=== PATIENT | female | born 1965 | race Caucasian/White ===

== ENCOUNTER 2017-03-11 06:07 | Inpatient (IN) | payer OTHER ==
--- NOTE | 2017-03-05 10:24 | HP ---
HISTORY AND PHYSICAL: DATE OF OFFICE VISIT: 02/28/17 DATE OF SURGERY: 03/11/17 SURGEON: Chantelle Fried MD PROCEDURE: Left total hip arthroplasty. CHIEF COMPLAINT: Left hip pain. HISTORY OF PRESENT ILLNESS: Ms. Reese is a 51-year-old female with complaints of left hip pain. She has failed conservative management and has elected to proceed with a left total hip arthroplasty, which is scheduled for with Dr. Fried. PAST MEDICAL HISTORY: Diabetes, hyperlipidemia, depression, history of osteomyelitis. PAST SURGICAL HISTORY: , I and D of the left hip, and tonsillectomy. CURRENT MEDICATIONS: 1. Amitriptyline 50 mg q.h.s. 2. Paxil 3 mg once a day. 3. Levemir 100 units per mL. 4. Metformin 500 mg twice a day. 5. Ibuprofen 800 mg 3 times a day. 6. Tramadol as needed. ALLERGIES: PENICILLIN. FAMILY HISTORY: Unknown. She is adopted. SOCIAL HISTORY: She is a 51-year-old female. She lives with her . 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 She does not smoke, use drugs or alcohol. REVIEW OF SYSTEMS: A complete 14-point review of systems was reviewed with the patient. Positive for diabetes. Negative for history of DVT, PE, or anesthesia problems. PHYSICAL EXAMINATION GENERAL: She is well developed, well nourished, in no acute distress. VITAL SIGNS: She stands 5 feet 5 inches tall, weighs 150 pounds. Her blood pressure is 171/86. Her heart rate is 116. HEENT: Normocephalic, atraumatic. NECK: Supple. No palpable lymph nodes. PULMONARY: The lungs are clear to auscultation bilaterally. CARDIO: Regular rate and rhythm. Strong S1, S2. ABDOMEN: Soft, nontender, nondistended. NEUROLOGIC: She is alert and oriented x3. Cranial nerves II through XII are intact. MUSCULOSKELETAL: Left lower extremity, the skin is intact. There are no open wounds or abrasions. She walks with a slightly antalgic type gait favoring the left leg. The lower extremity muscle group strengths are intact at 5/5. She has 2+ dorsalis pedis pulses and intact sensation. ASSESSMENT AND PLAN: Ms. Reese is a 51-year-old female with complaints of left hip pain secondary to osteoarthritis. She has failed conservative management, has elected to proceed with a left total hip arthroplasty which is scheduled for 03/11/[address] Fried discussed the risks and benefits of the surgery at today's visit and all of her questions were answered. Percocet, Coumadin, and Colace were sent to her pharmacy for postoperative pain control and DVT prophylaxis. She will see Dr. Fried in about 2 weeks after the surgery. GRANT PRESSLEY [id number]/[facility] #: [id number] ALICIA
[~2017-03-11 06:07] MED LIST: Buffered Lidocaine 0.9% SYRIN* 5 ML/SYR SYRINGE INTRADERM ONE; Famotidine IV* 10 MG/ML 2 ML (20 mg) IV ONE; Scopolamine 1.5 mg* PATCH TRANSDERM ONE
[2017-03-11] MEDS ORDERED: Buffered Lidocaine 0.9% SYRIN* 5 ML/SYR SYRINGE ONE (06:17)
[2017-03-11] MEDS ORDERED: Scopolamine 1.5 mg* PATCH ONE (06:17)
[2017-03-11] MEDS ORDERED: Famotidine IV* 10 MG/ML 2 ML (20 mg) ONE (06:17)
[2017-03-11] MEDS ORDERED: Clindamycin 900 MG IVPREMIX(* 900 MG/50 ML SDV IV ONE (06:18)
[2017-03-11 06:22] LABS: Manual Entry Verification CAR0052; UR Preg Internal Control QC Line Present; UR Preg Kit Lot# 6090065
[2017-03-11] MEDS ORDERED: Bupivacaine 0.5% SDV PF* 30 ML VIAL ONE (07:19)
[2017-03-11] MEDS ORDERED: Midazolam* 1 MG/ML 5 ML VIAL (5 MG) ONE (07:19)
[2017-03-11] MEDS ORDERED: Morphine PF AMP (0.5MG/ML)* 5 MG/10 ML AMP ONE (07:20)
[2017-03-11] MEDS ORDERED: fentaNYL* 50 MCG/ML 2 ML VIAL (100 MCG VIAL) ONE (07:20)
[2017-03-11] MEDS ORDERED: Propofol* 10 MG/ML 20 ML BTL IV PUSH ONE (07:51)
[2017-03-11] MEDS ORDERED: Lidocaine 2% PF * 5 ML VIAL ONE (07:51)
[2017-03-11] MEDS ORDERED: Phenylephrine IV* 40 MCG/ML 10 ML SYRINGE ONE (08:06)
[2017-03-11] MEDS ORDERED: Phenylephrine INJ* 10 MG/ML 1 ML VIAL (10 MG) ONE (08:11)
[2017-03-11] MEDS ORDERED: Ondansetron INJ* 2 MG/ML VIAL ONE (08:39)
[2017-03-11] MEDS ORDERED: fentaNYL* 50 MCG/ML 2 ML VIAL (100 MCG VIAL) IV PRN (08:43)
[2017-03-11] MEDS ORDERED: Nalbuphine* 20 MG/ML 1 ML VIAL IV PRN ×2 (08:43→08:44)
[2017-03-11] MEDS ORDERED: Acetaminophen IV 1GM/100ML * 100 ML IVPB ONE (08:43)
[2017-03-11] MEDS ORDERED: oxyCODONE TAB* 5 MG TAB PO PRN ×3 (08:43→10:25)
[2017-03-11] MEDS ORDERED: PROCHLORPERAZINE INJ 5 MG/ML 2 ML VIAL IV PRN ×2 (08:43→08:44)
[2017-03-11] MEDS ORDERED: Naloxone* 0.4 MG/ML 1 ML VIAL IV PRN (08:44)
[2017-03-11] MEDS ORDERED: Ondansetron INJ* 2 MG/ML VIAL IV PRN ×2 (08:44→23:46)
[2017-03-11] MEDS ORDERED: EPHEDrine (Pressors)* 50 MG/ML VIAL ONE (08:48)
[2017-03-11] MEDS ORDERED: Midazolam* 1 MG/ML 2 ML VIAL (2 MG) ONE (09:27)
[2017-03-11] MEDS ORDERED: Bacitracin IV* 50,000 UNITS INJ ONE (09:30)
[2017-03-11] MEDS ORDERED: oxyCODONE/Acetamin 5/325 MG* TAB PO PRN ×2 (10:25)
[2017-03-11] MEDS ORDERED: Magnesium Hydroxide LIQ* 30 ML UDC PO PRN (10:25)
[2017-03-11] MEDS ORDERED: Polyethylene Glycol 3350* 17 GM PACKET PO PRN (10:25)
[2017-03-11] MEDS ORDERED: Bisacodyl SUPP* 10 MG SUPP PR PRN (10:25)
[2017-03-11] MEDS ORDERED: Nalbuphine* 20 MG/ML 1 ML VIAL ONE (10:50)
[2017-03-11] MEDS ORDERED: Acetaminophen IV 1GM/100ML * 100 ML ONE (11:11)
--- NOTE | 2017-03-11 11:17 | RAD ---
Indication: LEFT total hip replacement. Comparison: January 13, 2017 Technique: RIGHT lateral decubitus crosstable lateral view LEFT hip 0823 hours Report: Prosthetic acetabular component in place. Test fit/reamer femoral component in place. Gross normal anatomic alignment in the AP projection. No periprosthetic fracture evident. Overlying soft tissue edema and subcutaneous emphysema. IMPRESSION: Intraoperative control film.
--- NOTE | 2017-03-11 11:19 | RAD ---
Indication: Postop LEFT total hip replacement. Comparison: January 13, 2017 Technique: Low AP pelvis and AP and crosstable lateral views LEFT hip. Report: LEFT total hip prosthesis in place with anatomic alignment. No periprosthetic fracture evident. Overlying soft tissue edema and subcutaneous emphysema. Kellgren and Danny grade 3 osteoarthritis of the RIGHT hip noted. IMPRESSION: Unremarkable immediate postop appearance following LEFT total hip replacement.
[2017-03-11] MEDS ORDERED: PROCHLORPERAZINE INJ 5 MG/ML 2 ML VIAL ONE (11:47)
[2017-03-11] MEDS ORDERED: Dextrose 50% Syringe 50 ML* 25 GM/50 ML SYRINGE IV PUSH PRN (12:02)
[2017-03-11] MEDS ORDERED: diPHENhydraMINE IV* 50 MG/ML 1 ml VIAL (BENADRYL) IV PRN ×2 (14:26→23:45)
--- NOTE | 2017-03-11 15:22 | CONS ---
HOSPITAL MEDICINE CONSULTATION REPORT: DATE OF CONSULT: 03/11/17 ATTENDING PHYSICIAN: Dr. Chantelle Fried. CONSULTING PHYSICIAN: Dr. Denton Gagnon (dictation provided by Evie Becerra NP). REASON FOR CONSULT: Medical comanagement in a patient admitted for left total hip arthroplasty. HISTORY OF PRESENT ILLNESS: Ms. Reese is a 51-year-old female with a past medical history of diabetes which is insulin dependent, hypertension, and episode of MSSA sepsis with bacteremia and left hip osteomyelitis, who presents to the hospital today with plan for left total hip arthroplasty. Please see the dictated H and P from Dr. Fried for complete details. In brief, back in June of 2015, the patient was initially treated at [facility] for MSSA bacteremia. She was transitioned to our hospital when she continued to have altered mental status and was found ultimately to have left hip myositis and acute femoral hematogenous osteomyelitis. She remained in the hospital from 06/17/15 through 07/07/15, and was critically ill. She did undergo I and D with Dr. Churchill at that time. She subsequently underwent rehab at our facility and was discharged on 08/04/15. The patient's and the patient state that she has been doing well since she has been discharged home and her only real concern has been left hip pain. She presents today for left total hip arthroplasty. PAST MEDICAL HISTORY: 1. Type 2 diabetes, insulin dependent. 2. History of MSSA bacteremia with left hip myositis and femoral osteomyelitis , 2014. 3. Hyperlipidemia. 4. Depression. MEDICATIONS: 1. Amitriptyline 50 mg p.o. q.h.s. 2. Paxil 10 mg p.o. daily. 3. Levemir 9 units in the morning and 14 units at night. 4. Metformin 500 mg p.o. twice daily. 5. Ibuprofen as needed. 6. Tramadol as needed. ALLERGIES: To PENICILLIN. FAMILY HISTORY: The patient is adopted. SOCIAL HISTORY: No report of alcohol, tobacco, or drug use. She lives with her who is the healthcare proxy. REVIEW OF SYSTEMS: A 14-point review of systems was completed with Ms. Reese and all those not mentioned above were negative. PHYSICAL EXAM: Vital Signs: Temperature 96.6, heart rate 88, respiratory rate 16, O2 saturation 97% on 2 L nasal cannula, blood pressure 98/69. General: Ms. Reese was lying in bed. She is in no acute distress. She is calm and cooperative to my examination. Neuro: She is alert, she is oriented x3. She moves all extremities equally. There is no facial asymmetry or focal weakness. Extraocular movements are intact. Heart: S1, S2. No murmur, rub, or gallop, and regular. Lungs are clear to auscultation bilaterally with no accessory muscle use and good aeration. Abdomen: Soft and nontender with bowel sounds positive x4. Extremities: No cyanosis or edema. Skin is intact. LABORATORY DATA: Preoperatively on 02/28/17, WBC , hemoglobin 14.4, hematocrit 44, platelet count 200. Sodium 139, potassium 4.4, chloride 106, serum bicarbonate 24, BUN 24, creatinine 0.77, glucose 89. ASSESSMENT AND PLAN: Ms. Reese is a 51-year-old female with past medical history of diabetes, depression, and episode of methicillin-sensitive Staphylococcus aureus bacteremia with left hip osteomyelitis in 2014, who presents today at the hospital with plans for an elective left total hip arthroplasty with Dr. Fried. Our recommendations are as follows: 1. Postop day #0 status post left total hip arthroplasty: Management will be per orthopedic services, they have ordered clindamycin x3 given her history of methicillin-sensitive Staphylococcus aureus bacteremia with osteomyelitis to the hip. Will certainly be vigilant for any signs of infection, but she is doing well so far at this point. Otherwise, the patient will be managed per routine with physical and occupational therapy. She will have pain medications p.r.n. with a bowel regimen and we will monitor her H and H. 2. Type 2 diabetes: Plan to continue her home Levemir with Lantus and provide her lispro sliding scale with meals. We will hold metformin. 3. DVT prophylaxis: Lovenox or warfarin per Ortho. 4. Disposition: Per Ortho. TIME SPENT: Approximately 60 minutes was spent on consultation of this patient , more than half the time spent with the patient at the bedside reviewing the events leading up to this hospitalization, performing the physical examination, and reviewing the plan of care. EVIE BECERRA, INFORMATION SERVICES ASSISTANT [id number]/[facility] #: [id number] ALICIA
[2017-03-11] MEDS: Clindamycin 600 MG IVPREMIX(* 600 MG/50 ML SDV IV SCH (16:18)
[2017-03-11] MEDS ORDERED: Warfarin TAB(*) 6 MG PO ONE (17:00)
[2017-03-11] MEDS ORDERED: INSULIN DETEMIR 14 UNIT SUBCUT SCH (18:00)
[2017-03-11] MEDS ORDERED: NS 0.9% 500 ML BAG* 500 ML IV ONE (18:48)
[2017-03-11] MEDS: Insulin LISPRO* 1 UNITS UNIT SUBCUT SCH (18:49)
[2017-03-11] MEDS: Acetaminophen TAB* 325 MG PO SCH (19:00)
[2017-03-11] MEDS ORDERED: Amitriptyline TAB* 10 MG PO SCH (21:00)
[2017-03-11] MEDS ORDERED: metFORMIN* 1,000 MG TAB PO SCH (21:00)
[2017-03-11] MEDS: PARoxetine HCL TAB* 20 MG PO SCH (22:59)
[2017-03-11] MEDS: Docusate CAP* 100 MG PO SCH (22:59)
[2017-03-11] MEDS: Insulin GLARGINE(*) 1 UNITS UNIT SUBCUT SCH (23:00)
[2017-03-11] MEDS ORDERED: Morphine INJ* 2 MG/ML 1 ML SYRINGE IV PRN (23:45)
[2017-03-11] MEDS ORDERED: Ondansetron TAB* 4 MG PO PRN (23:46)
[2017-03-12] MEDS: Amitriptyline TAB* 50 MG PO SCH ×2 (00:27→21:07)
[2017-03-12] MEDS: Clindamycin 600 MG IVPREMIX(* 600 MG/50 ML SDV IV SCH ×2 (01:16→07:27)
[2017-03-12] MEDS: Acetaminophen TAB* 325 MG PO SCH ×2 (03:48→11:44)
[2017-03-12 05:58] LABS: Hematocrit 26 % (35-47); Hemoglobin 8.6 g/dl (12.0-16.0)
[2017-03-12 06:16] LABS: BUN/Creatinine Ratio 16.9 (8-20); Calcium 8.1 mg/dL (8.6-10.3); EGFR African American 138.8 (>60); EGFR Non-African American 107.9 (>60); Potassium 3.6 mmol/L (3.5-5.0)
--- NOTE | 2017-03-12 07:37 | PN ---
Progress Note - Progress Note Date of Service: 03/12/17 SOAP: Subjective: Pt. is alert and pain controlled. Objective: LLE - dressing c/d/i. distally nvi. +df/pf, full sens lt, 2+ dp pulse. Vital Signs: Temp Pulse Resp BP Pulse Ox 99.8 F 117 16 115/60 90 03/12/17 03:38 03/12/17 03:38 03/12/17 03:38 03/12/17 03:38 03/12/17 03:38 Laboratory Results - last 24 hr 03/11/17 03/11/17 03/12/17 10:35 16:23 05:23 Hgb 8.6 L Hct 26 L INR (Anticoag Therapy) Sodium Potassium Chloride Carbon Dioxide Anion Gap BUN Creatinine Est GFR ( Amer) Est GFR (Non-Af Amer) BUN/Creatinine Ratio Glucose POC Glucose (mg/dL) 158 H 180 H Calcium 03/12/17 03/12/17 05:23 05:24 Hgb Hct INR (Anticoag Therapy) 1.01 Sodium 134 Potassium 3.6 Chloride 103 Carbon Dioxide 27 Anion Gap 4 BUN 10 Creatinine 0.59 Est GFR ( Amer) 138.8 Est GFR (Non-Af Amer) 107.9 BUN/Creatinine Ratio 16.9 Glucose 171 H POC Glucose (mg/dL) Calcium 8.1 L Assessment: 51 yo F pod 1 s/p LTHA Plan: wbat with post hip precautions pt/ot 6 mg coumadin tonight and lovenox today will follow micro
[2017-03-12] MEDS: Insulin LISPRO* 1 UNITS UNIT SUBCUT SCH ×4 (08:27→17:22)
[2017-03-12] MEDS: Docusate CAP* 100 MG PO SCH ×2 (08:27→21:07)
[2017-03-12] MEDS: Insulin GLARGINE(*) 1 UNITS UNIT SUBCUT SCH ×2 (08:27→21:05)
[2017-03-12] MEDS: Enoxaparin(*) 30 MG/0.3 ML SYR SUBCUT SCH (08:27)
--- NOTE | 2017-03-12 08:57 | OP ---
BLANKS DUE TO POOR VOICE QUALITY FROM CELL PHONE DATE OF OPERATION: 03/11/17 - ROOM #342 DATE OF : 67 SURGEON: Chantelle Fried MD STRETCHING PRESS OPERATOR: GRANT Yeung ANESTHESIOLOGIST: Dr. Ashraf. ANESTHESIA: Spinal. PRE-OP DIAGNOSIS: Severe degenerative osteoarthritis of the left hip joint, status post osage hip infection. POST-OP DIAGNOSIS: Severe degenerative osteoarthritis of the left hip joint, status post osage hip infection. OPERATIVE PROCEDURE: Left total hip arthroplasty. COMPLICATIONS: None. SPECIMENS: The resection was sent to pathology and found to have no acute inflammation during the case. Multiple culture swabs were sent to micro. ESTIMATED BLOOD LOSS: 300 cc. HARDWARE USED: This is uncemented [employer] total hip hardware. For the cup, a Tritanium hemispherical cluster hole shell 50D, one 20 mm screw was used. For the liner, a Trident X3 0-degree 32D. For the stem, an Accolade TMZF size 3 with a 132- degree neck with a Biolox delta ceramic V40 femoral head 32, -4. INDICATIONS: Ms. Reese is a 51-year-old female who suffered from sepsis and an infected left hip joint several years ago. She cleared the infection and did have open I and D of the left hip joint with Dr. Josemanuel Churchill. She was on long-term IV antibiotics. Her labs normalized. Hip aspiration was negative for any growth. Over the last 2 years, the patient has had increasingly severe post-traumatic arthritis of the left hip joint with obliteration of the joint space. She failed conservative treatment with anti-inflammatories, pain medications, and surgical therapy. Due to continued pain and decreased quality of life, she elected to undergo left total hip arthroplasty. Informed consent was obtained from the patient. She understood the risks of the procedure included but were not limited to bleeding, continued infection, damage to nearby structures, intraoperative fracture, nerve palsy, hardware failure or loosening, dislocation, leg length discrepancy, stroke, heart attack, blood clot , and . She wished to proceed. Of special note: The patient understood that at the time of surgery, she would have frozen section sent to pathology intra-operatively. She understood that if there was any obvious infection upon opening the hip joint or acute inflammation with the frozen section that I would place an antibiotic cement spacer instead proceeding with total hip arthroplasty. INTRAOPERATIVE FINDINGS: Intraoperatively, the patient had a large amount of superior and lateral heterotopic ossification along the acetabulum. She did have osteopenia. No evidence of purulence or infection. Complete loss of cartilage along the femoral head and acetabulum. Intraoperative cultures were obtained as well as intraoperative frozen section, and pathology did culture report no acute inflammation. DESCRIPTION OF PROCEDURE: Ms. Reese was identified in the preanesthesia unit. Her left lower extremity was marked as the correct operative side. Informed consent was signed and placed in the chart. The patient was taken to the operating room and placed under spinal anesthesia. A Agrawal catheter was placed. She was placed in the right lateral decubitus position on the peg board with all bony prominences well padded. Her left lower extremity was prepped and draped in the usual sterile fashion. Preop time- out was made to correctly identify the patient's side and site. Appropriate perioperative antibiotics were given within 1 hour of incision. The patient's prior posterior hip incision was used. Electrocautery was used to dissect down through the subcutaneous fat to the left lateral fascial layer. A new 10 blade was used to incise the lateral fascial layer in line with the skin incision. A Charnley retractor was placed. Piriformis and conjoint tendons were not easily identified. A single capsular flap was elevated with electrocautery and tagged with three #5 Ethibonds. No purulence or thickness skin joint fluid was noted. No evidence of gross infection. Multiple culture swabs were obtained and sent to microbiology for aerobic/anaerobic cultures and sensitivities. Soft tissue from around the joint capsule was obtained and sent for frozen section which did show no acute inflammation. The hip was carefully dislocated. Lesser troch to center of the femoral neck measured 52 mm. Oscillating saw was used to make the appropriate femoral neck cut. The femoral head was removed. The femur was retracted anteriorly. After appropriate placement of retractor, the acetabulum was easily visualized. There was a significant amount of superior and lateral osteophyte and heterotopic ossification which was carefully removed with a rongeur. There was no remaining labrum around the acetabular rim. The acetabulum was sequentially reamed to a size 49. Bleeding bone bed was obtained and a 49 trial had good fit. Final acetabular implant chosen was a Tritanium hemispherical cluster hole shell size 50D. One 20 mm screw was placed in the superior posterior quadrant for extra stability. A Trident X3 0- degree polyethylene insert was chosen, 32D. This was impacted into the acetabulum without difficulty. Stability of the liner was checked and rechecked, and noted to be stable. Next, attention was turned to preparation of the femur. Canal finder was used to enter the proximal femur. Femoral canal was sequentially broached up to a size 3. A 132 neck trial was chosen as well as a 32 +0 femoral head trial. Lesser trochanter to center of femoral head measured 55 mm which was longer than templated. A -4 head was chosen and this measured 52 mm. The hip was reduced and taken through a range of motion. The hip was stable in all positions. There was some residual flexion contracture from her tight anterior soft tissue. The hip was stable in all positions. The hip was carefully dislocated. All trials were carefully removed. Final stem chosen was an Accolade TMZF 3 with a 132-degree neck. This was impacted into the femoral canal without difficulty. A 32 -4 ceramic Biolox V40 femoral head was chosen. This was impacted onto the femoral neck. Lesser troch to center of the femoral head measured 52 mm. The hip was reduced and taken through a range of motion. The hip was stable in all positions. Soft tissue tension was deemed to be appropriate. The hip was copiously irrigated with 3 L of sterile saline followed by another 3 L of sterile saline with bacitracin. Previously tagged capsular flap was reapproximated to the posterolateral femur through two trochanteric drill holes. The lateral fascial layer was closed using interrupted #1 Vicryls. The rest of the incision was closed in a layered fashion using 0 and 2-0 Vicryls. The skin was closed using running 3-0 Monocryl suture and Dermabond. Sterile Adaptic, 4x4's, and paper tape were used to cover the incision. The patient's anesthesia was reversed without difficulty. She was taken to the PACU in stable condition. Intended weightbearing will be weightbearing as tolerated. Intended DVT prophylaxis will be Coumadin with a Lovenox bridge. [id number]/[facility] #: [id number] ALICIA
[2017-03-12] MEDS ORDERED: INSULIN DETEMIR 9 UNIT SUBCUT SCH (09:00)
[2017-03-12 10:46] LABS: Hematocrit 25 % (35-47); Hemoglobin 8.3 g/dl (12.0-16.0)
--- NOTE | 2017-03-12 11:27 | PN ---
Subjective Date of Service: 03/12/17 Interval History: This is a 51 yo female with IDDM and h/o hip osteomyelitis who underwent LESA with Dr Fried yesterday. Patient states her pain is well controlled and she's had only minimal nausea. She was slightly lightheaded this am ambulating to the bathroom and was noted to be hypotensive and tachycardic. She denies abd pain, CP or SOB. No fevers or other acute symptoms. She received a 1L of fluid bolus and BP responded well and she denied symptoms of dizziness, etc. Objective Active Medications: Acetaminophen (Tylenol Tab*) 975 mg PO Q8H DIMITRIS Stop: 03/12/17 19:12 Last Admin: 03/12/17 03:48 Dose: 975 mg Acetaminophen (Tylenol Tab*) 650 mg PO Q4H PRN PRN Reason: PAIN OR TEMPERATURE Amitriptyline HCl (Elavil Tab*) 50 mg PO BEDTIME [facility] Last Admin: 03/12/17 00:27 Dose: 50 mg Bisacodyl (Dulcolax Supp*) 10 mg VT DAILY PRN PRN Reason: constipation Dextrose (D50w Syringe 50 Ml*) 12.5 gm IV PUSH .FOR FS < 60 - SS PRN PRN Reason: FS < 60 Diphenhydramine HCl (Benadryl Iv*) 12.5 mg IV Q6H PRN PRN Reason: PRURITIS Last Admin: 03/12/17 00:28 Dose: 12.5 mg Diphenhydramine HCl (Benadryl Iv*) 25 mg IV Q6H PRN PRN Reason: ITCHING Last Admin: 03/11/17 16:32 Dose: 25 mg Docusate Sodium (Colace Cap*) 100 mg PO BID [facility] Last Admin: 03/12/17 08:27 Dose: 100 mg Enoxaparin Sodium (Lovenox(*)) 30 mg SUBCUT Q24H [facility] Last Admin: 03/12/17 08:27 Dose: 30 mg Lactated Ringer's (Lactated Ringers 1000 Ml Bag*) 1,000 mls @ 100 mls/hr IV PER RATE [facility] Last Admin: 03/11/17 23:28 Dose: 100 mls/hr Lactated Ringer's (Lactated Ringers 1000 Ml Bag*) 1,000 mls @ 0 mls/hr IV WIDE OPEN DIMITRIS PRN Reason: Wide Open Stop: 03/12/17 23:59 Last Admin: 03/12/17 10:34 Dose: 999 mls/hr Insulin Glargine (Lantus(*)) 5 units SUBCUT BID [facility] Last Admin: 03/12/17 08:27 Dose: 5 units Insulin Human Lispro (Humalog*) 0 units SUBCUT AC [facility] PRN Reason: Protocol Last Admin: 03/12/17 08:27 Dose: 1 unit Lactulose (Lactulose*) 30 ml PO Q6H PRN PRN Reason: constipation Magnesium Hydroxide (Milk Of Magnesia Liq*) 30 ml PO Q6H PRN PRN Reason: constipation Morphine Sulfate (Morphine Inj (Syringe)*) 2 mg IV Q2H PRN PRN Reason: PAIN Ondansetron HCl (Zofran Inj*) 4 mg IV Q6H PRN PRN Reason: nausea Ondansetron HCl (Zofran Tab*) 4 mg PO Q6H PRN PRN Reason: NAUSEA Last Admin: 03/12/17 07:35 Dose: 4 mg Paroxetine HCl (Paxil Tab*) 20 mg PO BEDTIME [facility] Last Admin: 03/11/17 22:59 Dose: 20 mg Pharmacy Profile Note (Scopolomine Patch Remove*) 1 note PATCH OFF ONCE ONE Stop: 03/14/17 06:01 Pharmacy Profile Note (Coumadin Daily Reminder*) 1 note FOLLOW UP 1700 [facility] Last Admin: 03/11/17 16:20 Dose: 1 note Polyethylene Glycol/Electrolytes (Miralax*) 17 gm PO DAILY PRN PRN Reason: Constipation Warfarin Sodium (Coumadin Tab(*)) 6 mg PO ONCE@1700 [facility] PRN Reason: Protocol Stop: 03/12/17 17:01 Vital Signs: Temp Pulse Resp BP Pulse Ox 98.3 F 89 16 74/44 98 03/12/17 07:11 03/12/17 10:03 03/12/17 07:11 03/12/17 10:07 03/12/17 10:03 Oxygen Devices in Use Now: None Appearance: Well appearing middle aged female in NAD Respiratory: Symmetrical Chest Expansion and Respiratory Effort, Clear to Auscultation Cardiovascular: NL Sounds; No Murmurs; No JVD, RRR Abdominal: NL Sounds; No Tenderness; No Distention Extremities: - - surgical dressing over L hip, clean, no bloody drainage Skin: No Rash or Ulcers Neurological: Alert and Oriented x 3 Result Diagrams: 03/12/17 10:31 03/12/17 05:24 Microbiology and Other Data: Microbiology 03/11/17 08:27 Anaerobic Culture - Preliminary Wound - Hip Left No Growth Day 1 Gram Stain - Final Wound Culture - Preliminary No Growth Day 1 03/11/17 11:43 Nasal Screen MRSA (PCR)(JULI) - Final Nasal Mrsa Negative Assess/Plan/Problems-Billing Assessment: This is a 51 yo female with IDDM, L hip osteomyelitis, HLD and depression who underwent L LESA with Dr Fried 03/11/17. Hospitalist group has been asked to consult for medical co-management - Patient Problems (1) Status post total hip replacement, left Comment: POD #1 Postoperative management per orthopedic surgery team h/o osteomyelitis of the L hip following MSSA bacteremia s/p appropriate antibiotic therapy (2) Postoperative anemia due to acute blood loss Comment: Symptomatic this am with hypotension and tachycardia Responded well to 1L fluid bolus Pre-op Hgb 14.4, post-op 8.6 g/dl Will obtain orthostatic vital signs and repeat H/H this afternoon If still symptomatic later today, recommend transfusing appropriately (3) Type 2 diabetes mellitus Comment: Relatively well controlled Increase insulin glargine to near home doses today as her appetite will likely return to normal (4) Depression Comment: Cont Paxil (5) Full code status (6) DVT prophylaxis Comment: Lovenox bridging to Coumadin per ortho Status and Disposition: Inpatient. Dispo per ortho. Hospitalist group will cont to follow
--- NOTE | 2017-03-12 14:25 | PN ---
Progress Note - Progress Note Date of Service: 03/12/17 SOAP: Subjective: This is a 51 yo white female s/p day 1 left total hip secondary to osteomyelitis after sepsis with bacteremia in 2014. Patient was notably hypotensive this morning feeling lightheaded nauseous with associated headache. She received IVF with eventual improvement in her pressures. She remains afebrile with no chills or sweats. She admits to pain in the left hip but states it is well controlled with medication. Denies SOB, chest pains, abdominal symptoms, or edema. Active medications: Acetaminophen (Tylenol Tab*) 975 mg PO Q8H [facility] Stop: 03/12/17 19:12 Last Admin: 03/12/17 11:44 Dose: 975 mg Acetaminophen (Tylenol Tab*) 650 mg PO Q4H PRN PRN Reason: PAIN OR TEMPERATURE Amitriptyline HCl (Elavil Tab*) 50 mg PO BEDTIME [facility] Last Admin: 03/12/17 00:27 Dose: 50 mg Bisacodyl (Dulcolax Supp*) 10 mg [place] DAILY PRN PRN Reason: constipation Dextrose (D50w Syringe 50 Ml*) 12.5 gm IV PUSH .FOR FS < 60 - SS PRN PRN Reason: FS < 60 Diphenhydramine HCl (Benadryl Iv*) 12.5 mg IV Q6H PRN PRN Reason: PRURITIS Last Admin: 03/12/17 00:28 Dose: 12.5 mg Diphenhydramine HCl (Benadryl Iv*) 25 mg IV Q6H PRN PRN Reason: ITCHING Last Admin: 03/11/17 16:32 Dose: 25 mg Docusate Sodium (Colace Cap*) 100 mg PO BID [facility] Last Admin: 03/12/17 08:27 Dose: 100 mg Enoxaparin Sodium (Lovenox(*)) 30 mg SUBCUT Q24H [facility] Last Admin: 03/12/17 08:27 Dose: 30 mg Lactated Ringer's (Lactated Ringers 1000 Ml Bag*) 1,000 mls @ 100 mls/hr IV PER RATE [facility] Last Admin: 03/12/17 13:36 Dose: 100 mls/hr Lactated Ringer's (Lactated Ringers 1000 Ml Bag*) 1,000 mls @ 0 mls/hr IV WIDE OPEN DIMITRIS PRN Reason: Wide Open Stop: 03/12/17 23:59 Last Admin: 03/12/17 10:34 Dose: 999 mls/hr Insulin Glargine (Lantus(*)) 10 units SUBCUT BID [facility] Insulin Human Lispro (Humalog*) 0 units SUBCUT AC [facility] PRN Reason: Protocol Last Admin: 03/12/17 13:10 Dose: 4 units Lactulose (Lactulose*) 30 ml PO Q6H PRN PRN Reason: constipation Magnesium Hydroxide (Milk Of Magnesia Liq*) 30 ml PO Q6H PRN PRN Reason: constipation Morphine Sulfate (Morphine Inj (Syringe)*) 2 mg IV Q2H PRN PRN Reason: PAIN Ondansetron HCl (Zofran Inj*) 4 mg IV Q6H PRN PRN Reason: nausea Ondansetron HCl (Zofran Tab*) 4 mg PO Q6H PRN PRN Reason: NAUSEA Last Admin: 03/12/17 07:35 Dose: 4 mg Paroxetine HCl (Paxil Tab*) 20 mg PO BEDTIME [facility] Last Admin: 03/11/17 22:59 Dose: 20 mg Pharmacy Profile Note (Scopolomine Patch Remove*) 1 note PATCH OFF ONCE ONE Stop: 03/14/17 06:01 Pharmacy Profile Note (Coumadin Daily Reminder*) 1 note FOLLOW UP 1700 [facility] Last Admin: 03/11/17 16:20 Dose: 1 note Polyethylene Glycol/Electrolytes (Miralax*) 17 gm PO DAILY PRN PRN Reason: Constipation Warfarin Sodium (Coumadin Tab(*)) 6 mg PO ONCE@1700 [facility] PRN Reason: Protocol Stop: 03/12/17 17:01 Allergies Allergy/AdvReac Type Severity Reaction Status Date / Time Bee Venom Allergy Severe Swelling Verified 03/11/17 06:25 Of Face,Lips,& Throat Penicillins Allergy Severe Rash Verified 03/11/17 06:25 Objective: Vital Signs: Temp Pulse Resp BP Pulse Ox 98.1 F 98 17 119/67 93 03/12/17 11:15 03/12/17 11:15 03/12/17 11:15 03/12/17 11:15 03/12/17 11:15 General: This is a 51 yo white female who appears fatigued but alert and oriented x3 in NAD. Skin: Some pallor, no visible areas of bleeding/discharge from the wound, no ecchymosis or areas of warmth. Heart: RRR, S1 and S2 split, no JVD, no murmurs, rubs, or gallops. Lungs: Chest is symmetric, lungs are clear to auscultation throughout. Abdomen: Normoactive bowels sounds, abdomen is soft and nontender. Extremities: No edema, PP 2+ bilaterally, capillary refill less than 2 seconds. Neuro: sensation intact throughout, strength 5/5 throughout. Lab Results Hgb 8.3 g/dl (12.0-16.0) L 03/12/17 10:31 Hct 25 % (35-47) L 03/12/17 10:31 INR (Anticoag Therapy) 1.01 (0.89-1.11) 03/12/17 05:23 Sodium 134 mmol/L (133-145) 03/12/17 05:24 Potassium 3.6 mmol/L (3.5-5.0) 03/12/17 05:24 Chloride 103 mmol/L (101-111) 03/12/17 05:24 Carbon Dioxide 27 mmol/L (22-32) 03/12/17 05:24 Anion Gap 4 mmol/L (2-11) 03/12/17 05:24 BUN 10 mg/dL (6-24) 03/12/17 05:24 Creatinine 0.59 mg/dL (0.51-0.95) 03/12/17 05:24 Est GFR ( Amer) 138.8 (>60) 03/12/17 05:24 Est GFR (Non-Af Amer) 107.9 (>60) 03/12/17 05:24 BUN/Creatinine Ratio 16.9 (8-20) 03/12/17 05:24 Glucose 171 mg/dL (70-100) H 03/12/17 05:24 POC Glucose (mg/dL) 201 mg/dL (74-106) H 03/12/17 11:49 Calcium 8.1 mg/dL (8.6-10.3) L 03/12/17 05:24 Urine Test Negative (Negative) 03/11/17 06:05 Imaging: Hip X-ray: post op left total hip, unremarkable. Assessment/Plan: This is a 51 yo white female s/p day 1 left total hip secondary to osteomyelitis with PMH of DM, hyperlipidemia, and depression. 1) Post Operative day 1 left total hip: Followed by orthopedic team. Cont Clindamycin per orthopedic. 2) Hypotension: Pre operative H/H on 02/28: 14.4/44, post op H/H now 8.3/25. Monitor H/H, repeat tonight and tomorrow morning. Etiology of hypotension due to post operative anemia due to likely blood loss. Patient is currently normotensive and responded to 1L of fluids given. 3) DM: Hold metformin Cont lantus and SS humalog. Relatively well controlled. 4) Hyperlipidemia: No pharmaceutical management at home. 5) Depression: Cont Paxil and amitriptyline. 6) DVT Prophylaxis: Heparin SQ with bridge to Warfarin. 7) Code status: Full code
[2017-03-12 16:31] LABS: Hematocrit 28 % (35-47); Hemoglobin 9.2 g/dl (12.0-16.0)
[2017-03-12] MEDS ORDERED: Warfarin TAB(*) 6 MG PO SCH (17:00)
[2017-03-12] MEDS ORDERED: oxyCODONE TAB* 5 MG TAB PO PRN (17:19)
[2017-03-12] MEDS ORDERED: oxyCODONE/Acetamin 5/325 MG* TAB PO PRN (17:19)
[2017-03-12] MEDS: oxyCODONE/Acetamin 5/325 MG* TAB PO PRN ×2 (17:30→21:29)
[2017-03-12] MEDS ORDERED: Acetaminophen TAB* 325 MG PO PRN (19:13)
[2017-03-12] MEDS: PARoxetine HCL TAB* 20 MG PO SCH (21:08)
[2017-03-13] MEDS: oxyCODONE/Acetamin 5/325 MG* TAB PO PRN ×4 (02:55→16:34)
[2017-03-13 05:19] LABS: Hematocrit 25 % (35-47); Hemoglobin 8.3 g/dl (12.0-16.0)
[2017-03-13] MEDS: Insulin LISPRO* 1 UNITS UNIT SUBCUT SCH ×3 (08:36→16:52)
[2017-03-13] MEDS: Insulin GLARGINE(*) 1 UNITS UNIT SUBCUT SCH (08:37)
[2017-03-13] MEDS: Enoxaparin(*) 30 MG/0.3 ML SYR SUBCUT SCH (08:37)
[2017-03-13] MEDS: Docusate CAP* 100 MG PO SCH (08:37)
--- NOTE | 2017-03-13 08:46 | PN ---
Progress Note - Progress Note Date of Service: 03/13/17 SOAP: Subjective: POD #2 Left LESA, doing very well. C/o some pain but well controlled with medications. Denies dizziness, lightheadedness, CP/SOB or calf pain Objective: Vitals: Temp Pulse Resp BP Pulse Ox 98.7 F 111 14 108/58 91 03/13/17 08:19 03/13/17 08:19 03/13/17 08:19 03/13/17 08:19 03/13/17 08:19 Gen: A&O x3, NAD at rest sitting in chair Left Hip: Incision C/D/I, minimal ecchymosis and edema. +f/e at ankles, MTPs, thigh soft, NT. N/V intact Labs: Laboratory Results - last 24 hr 03/12/17 03/12/17 03/12/17 10:31 11:49 16:26 Hgb 8.3 L 9.2 L Hct 25 L 28 L INR (Anticoag Therapy) POC Glucose (mg/dL) 201 H 03/12/17 03/13/17 03/13/17 16:54 05:09 05:09 Hgb 8.3 L Hct 25 L INR (Anticoag Therapy) 1.36 H POC Glucose (mg/dL) 198 H 03/13/17 07:11 Hgb Hct INR (Anticoag Therapy) POC Glucose (mg/dL) 169 H Assessment: POD #2 Left LESA Plan: Cont PT/OT INR 1.36, continue coumadin 8mg tonight Pt with low h/h, tachycardia. Asymptomatic at this point, will continue to monitor, appreciate medicine input Possible d/c home later today
--- NOTE | 2017-03-13 09:44 | PN ---
Progress Note - Progress Note Date of Service: 03/13/17 SOAP: Subjective: This is a 51 yo white female s/p day 2 left total hip secondary to osteomyelitis after sepsis with bacteremia in 2014. Report pain much better and manageable with medication. She is able to ambulate independently. Episode of hypotension and tachycardia last night with blood pressures in the 89/42 but patient asymptomatic. She is now normotensive and remains afebrile. Admits to constipation, last BM 3 days ago. Denies SOB, chest pains, n/v/d, abdominal pain , pain in the extremities. Active medications: Acetaminophen (Tylenol Tab*) 650 mg PO Q4H PRN PRN Reason: PAIN OR TEMPERATURE Amitriptyline HCl (Elavil Tab*) 50 mg PO BEDTIME [facility] Last Admin: 03/12/17 21:07 Dose: 50 mg Bisacodyl (Dulcolax Supp*) 10 mg [place] DAILY PRN PRN Reason: constipation Dextrose (D50w Syringe 50 Ml*) 12.5 gm IV PUSH .FOR FS < 60 - SS PRN PRN Reason: FS < 60 Diphenhydramine HCl (Benadryl Iv*) 12.5 mg IV Q6H PRN PRN Reason: PRURITIS Last Admin: 03/12/17 00:28 Dose: 12.5 mg Diphenhydramine HCl (Benadryl Iv*) 25 mg IV Q6H PRN PRN Reason: ITCHING Last Admin: 03/11/17 16:32 Dose: 25 mg Docusate Sodium (Colace Cap*) 100 mg PO BID [facility] Last Admin: 03/13/17 08:37 Dose: 100 mg Enoxaparin Sodium (Lovenox(*)) 30 mg SUBCUT Q24H [facility] Last Admin: 03/13/17 08:37 Dose: 30 mg Insulin Glargine (Lantus(*)) 10 units SUBCUT BID [facility] Last Admin: 03/13/17 08:37 Dose: 10 unit Insulin Human Lispro (Humalog*) 0 units SUBCUT AC [facility] PRN Reason: Protocol Last Admin: 03/13/17 08:36 Dose: 2 units Lactulose (Lactulose*) 30 ml PO Q6H PRN PRN Reason: constipation Magnesium Hydroxide (Milk Of Magnesia Liq*) 30 ml PO Q6H PRN PRN Reason: constipation Morphine Sulfate (Morphine Inj (Syringe)*) 2 mg IV Q2H PRN PRN Reason: PAIN Ondansetron HCl (Zofran Inj*) 4 mg IV Q6H PRN PRN Reason: nausea Ondansetron HCl (Zofran Tab*) 4 mg PO Q6H PRN PRN Reason: NAUSEA Last Admin: 03/12/17 07:35 Dose: 4 mg Oxycodone HCl (Roxycodone Tab*) 10 mg PO Q4H PRN PRN Reason: PAIN Oxycodone/Acetaminophen (Percocet 5/325 Tab*) 1 tab PO Q4H PRN PRN Reason: PAIN Oxycodone/Acetaminophen (Percocet 5/325 Tab*) 2 tab PO Q4H PRN PRN Reason: PAIN Last Admin: 03/13/17 09:13 Dose: 2 tab Paroxetine HCl (Paxil Tab*) 20 mg PO BEDTIME [facility] Last Admin: 03/12/17 21:08 Dose: 20 mg Pharmacy Profile Note (Scopolomine Patch Remove*) 1 note PATCH OFF ONCE ONE Stop: 03/14/17 06:01 Pharmacy Profile Note (Coumadin Daily Reminder*) 1 note FOLLOW UP 1700 [facility] Last Admin: 03/12/17 17:23 Dose: 1 note Polyethylene Glycol/Electrolytes (Miralax*) 17 gm PO DAILY PRN PRN Reason: Constipation Allergies Allergy/AdvReac Type Severity Reaction Status Date / Time Bee Venom Allergy Severe Swelling Verified 03/11/17 06:25 Of Face,Lips,& Throat Penicillins Allergy Severe Rash Verified 03/11/17 06:25 Objective: Vital Signs Temp Pulse Resp BP Pulse Ox 98.7 F 111 18 108/58 91 03/13/17 08:19 03/13/17 08:19 03/13/17 09:13 03/13/17 08:19 03/13/17 08:19 General: This is a 51 yo white female who appears fatigued but alert and oriented x3 in NAD. Skin: Some pallor, no visible areas of bleeding/discharge from the wound, no ecchymosis or areas of warmth. Wound without leakage in dry dressing. Heart: RRR, S1 and S2 split, no JVD, no murmurs, rubs, or gallops. Lungs: Chest is symmetric, lungs are clear to auscultation throughout. Abdomen: Normoactive bowels sounds, abdomen is soft and nontender. Extremities: No edema, PP 2+ bilaterally, capillary refill less than 2 seconds. Neuro: sensation intact throughout, strength 5/5 throughout. Hgb 8.3 g/dl (12.0-16.0) L 03/13/17 05:09 Hct 25 % (35-47) L 03/13/17 05:09 INR (Anticoag Therapy) 1.36 (0.89-1.11) H 03/13/17 05:09 Sodium 134 mmol/L (133-145) 03/12/17 05:24 Potassium 3.6 mmol/L (3.5-5.0) 03/12/17 05:24 Chloride 103 mmol/L (101-111) 03/12/17 05:24 Carbon Dioxide 27 mmol/L (22-32) 03/12/17 05:24 Anion Gap 4 mmol/L (2-11) 03/12/17 05:24 BUN 10 mg/dL (6-24) 03/12/17 05:24 Creatinine 0.59 mg/dL (0.51-0.95) 03/12/17 05:24 Est GFR ( Amer) 138.8 (>60) 03/12/17 05:24 Est GFR (Non-Af Amer) 107.9 (>60) 03/12/17 05:24 BUN/Creatinine Ratio 16.9 (8-20) 03/12/17 05:24 Glucose 171 mg/dL (70-100) H 03/12/17 05:24 POC Glucose (mg/dL) 169 mg/dL (74-106) H 03/13/17 07:11 Calcium 8.1 mg/dL (8.6-10.3) L 03/12/17 05:24 Urine Test Negative (Negative) 03/11/17 06:05 Imaging: Hip X-ray: post op left total hip, unremarkable. Assessment/Plan: This is a 51 yo white female s/p day 2 left total hip secondary to osteomyelitis with PMH of DM, hyperlipidemia, and depression. 1) Post Operative day 2 left total hip: Followed by orthopedic team. Plan for discharge home later today. 2) Hypotension: Pre operative H/H on 02/28: 14.4/44, post op day 1 H/H 8.3/ and day 2 8.3/. Asymptomatic, no indication for transfusion. Monitor H/H, repeat tonight and tomorrow morning. Etiology of hypotension due to post operative anemia due to likely blood loss. Patient is currently normotensive. 3) DM: Hold metformin Cont lantus and SS humalog. Relatively well controlled. 4) Hyperlipidemia: No pharmaceutical management at home. 5) Depression: Cont Paxil and amitriptyline. 6) DVT Prophylaxis: Heparin SQ with bridge to Warfarin. 7) Code status: Full code
--- NOTE | 2017-03-13 10:59 | PN ---
Subjective Date of Service: 03/13/17 Interval History: Patient reports that she is feeling quite well. She denies dizziness or SOB. No CP, abd pain, n/v. Pain is well controlled. Mildly hypotensive overnight and note persistent tachycardia in the 110s. Objective Active Medications: Acetaminophen (Tylenol Tab*) 650 mg PO Q4H PRN PRN Reason: PAIN OR TEMPERATURE Amitriptyline HCl (Elavil Tab*) 50 mg PO BEDTIME [facility] Last Admin: 03/12/17 21:07 Dose: 50 mg Bisacodyl (Dulcolax Supp*) 10 mg [place] DAILY PRN PRN Reason: constipation Dextrose (D50w Syringe 50 Ml*) 12.5 gm IV PUSH .FOR FS < 60 - SS PRN PRN Reason: FS < 60 Diphenhydramine HCl (Benadryl Iv*) 12.5 mg IV Q6H PRN PRN Reason: PRURITIS Last Admin: 03/12/17 00:28 Dose: 12.5 mg Diphenhydramine HCl (Benadryl Iv*) 25 mg IV Q6H PRN PRN Reason: ITCHING Last Admin: 03/11/17 16:32 Dose: 25 mg Docusate Sodium (Colace Cap*) 100 mg PO BID [facility] Last Admin: 03/13/17 08:37 Dose: 100 mg Enoxaparin Sodium (Lovenox(*)) 30 mg SUBCUT Q24H [facility] Last Admin: 03/13/17 08:37 Dose: 30 mg Insulin Glargine (Lantus(*)) 10 units SUBCUT BID [facility] Last Admin: 03/13/17 08:37 Dose: 10 unit Insulin Human Lispro (Humalog*) 0 units SUBCUT AC [facility] PRN Reason: Protocol Last Admin: 03/13/17 08:36 Dose: 2 units Lactulose (Lactulose*) 30 ml PO Q6H PRN PRN Reason: constipation Magnesium Hydroxide (Milk Of Magnesia Liq*) 30 ml PO Q6H PRN PRN Reason: constipation Morphine Sulfate (Morphine Inj (Syringe)*) 2 mg IV Q2H PRN PRN Reason: PAIN Ondansetron HCl (Zofran Inj*) 4 mg IV Q6H PRN PRN Reason: nausea Ondansetron HCl (Zofran Tab*) 4 mg PO Q6H PRN PRN Reason: NAUSEA Last Admin: 03/12/17 07:35 Dose: 4 mg Oxycodone HCl (Roxycodone Tab*) 10 mg PO Q4H PRN PRN Reason: PAIN Oxycodone/Acetaminophen (Percocet 5/325 Tab*) 1 tab PO Q4H PRN PRN Reason: PAIN Oxycodone/Acetaminophen (Percocet 5/325 Tab*) 2 tab PO Q4H PRN PRN Reason: PAIN Last Admin: 03/13/17 09:13 Dose: 2 tab Paroxetine HCl (Paxil Tab*) 20 mg PO BEDTIME [facility] Last Admin: 03/12/17 21:08 Dose: 20 mg Pharmacy Profile Note (Scopolomine Patch Remove*) 1 note PATCH OFF ONCE ONE Stop: 03/14/17 06:01 Pharmacy Profile Note (Coumadin Daily Reminder*) 1 note FOLLOW UP 1700 [facility] Last Admin: 03/12/17 17:23 Dose: 1 note Polyethylene Glycol/Electrolytes (Miralax*) 17 gm PO DAILY PRN PRN Reason: Constipation Vital Signs: Temp Pulse Resp BP Pulse Ox 98.7 F 111 18 108/58 91 03/13/17 08:19 03/13/17 08:19 03/13/17 10:46 03/13/17 08:19 03/13/17 08:19 Oxygen Devices in Use Now: None Appearance: Well appearing and in NAD Respiratory: Symmetrical Chest Expansion and Respiratory Effort, Clear to Auscultation Cardiovascular: NL Sounds; No Murmurs; No JVD, RRR Extremities: No Edema Skin: No Rash or Ulcers Neurological: Alert and Oriented x 3 Result Diagrams: 03/13/17 05:09 03/12/17 05:24 Microbiology and Other Data: Microbiology 03/11/17 08:27 Anaerobic Culture - Preliminary Wound - Hip Left No Growth Day 1 Gram Stain - Final Wound Culture - Preliminary No Growth Day 1 03/11/17 11:43 Nasal Screen MRSA (PCR)(JULI) - Final Nasal Mrsa Negative Assess/Plan/Problems-Billing Assessment: This is a 51 yo female with IDDM, L hip osteomyelitis, HLD and depression who underwent L LESA with Dr Fried 03/11/17. Hospitalist group has been asked to consult for medical co-management - Patient Problems (1) Status post total hip replacement, left Comment: POD #2 Postoperative management per orthopedic surgery team h/o osteomyelitis of the L hip following MSSA bacteremia s/p appropriate antibiotic therapy (2) Postoperative anemia due to acute blood loss Comment: Symptomatic yesterday, but responded well to fluid bolus She is still mildly tachycardic, but completely asymptomatic No indication for transfusion at this time, but recommend FeSO4 supp (3) Type 2 diabetes mellitus Comment: Relatively well controlled Increase insulin glargine to near home doses today as her appetite will likely return to normal (4) Depression Comment: Cont Paxil (5) Full code status (6) DVT prophylaxis Comment: Lovenox bridging to Coumadin per ortho Status and Disposition: Inpatient. Dispo per ortho. No acute medical concerns and appropriate for discharge from a medical perspective. Recommend FeSO4 supp as listed above, Rx sent to outpt pharmacy of choice
[2017-03-13 13:06] VITALS: BP 112/72
[2017-03-13] MEDS ORDERED: Warfarin TAB(*) 4 MG PO ONE (17:00)
[2017-03-14] MEDS ORDERED: Scopolomine PATCH Remove* 1 NOTE MISC PATCH OFF ONE (06:00)
== END 2017-03-13 17:24 | disposition home or self-care (01) | DRG 470 ==
LOC: AA 06:07 → SSU 12:08
PROVIDERS: ADMIT Orthopaedic Surgery Adult Reconstructive Orthopaedic Surgery; ATTEND Orthopaedic Surgery Adult Reconstructive Orthopaedic Surgery
PROC: 0SRB04A Replacement of Left Hip Joint with Ceramic on Polyethylene Synthetic Substitute, Uncemented, Open Approach (ICD-10-PCS; principal; 2017-03-11 07:30)
DX: M16.12 Unilateral primary osteoarthritis, left hip (principal); I95.89 Other hypotension; D62 Acute posthemorrhagic anemia; F32.9 Major depressive disorder, single episode, unspecified; E78.5 Hyperlipidemia, unspecified; F41.9 Anxiety disorder, unspecified; M85.862 Other specified disorders of bone density and structure, left lower leg; M25.752 Osteophyte, left hip; E11.9 Type 2 diabetes mellitus without complications; R00.0 Tachycardia, unspecified; K59.00 Constipation, unspecified; Z86.19 Personal history of other infectious and parasitic diseases; Z79.4 Long term (current) use of insulin; Z88.0 Allergy status to penicillin
CPT/HCPCS: 36415; 72170; 80048; 81025; 85014; 85018; 85610; 87070; 87073; 87205; 87641; 94760; A9270-GY; C1713; C1776; J0780; J1200; J1650; J2250; J2300; J2405; J2704; J3010

== ENCOUNTER 2018-03-19 13:57 | Emergency (ER) | payer OTHER ==
--- OUTSIDE RECORDS SUMMARY | 2018-03-19 14:17 | XMS REPORT ---
:1965 External Reference #:[id number] Author Organization [employer] Address [address] [place] [address] [place] [address] Phone [phone] Care Team Providers Name Role Phone Lui Mobley MD Primary Care Physician Unavailable Payers Type Date Identification Numbers Payment Provider Subscriber Commercial Policy Number: [id number] [employer] Darren Reese Group Number: [id number] [address] PayID: [id number] [place] [address] Medigap Part B Effective: 2014 Policy Number: BS Of ARACELI Darren Reese [id number] Expires: 2016 Group Number: [id number] [address] [address] PayID: [id number] [place] [id number] Problems Date Description Provider Status Onset: 08/21/2015 Localized, 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 Active Onset: 03/24/2017 Localized, primary osteoarthritis of the Chantelle Fried M.D. 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[place] ETOH Use Denies alcohol use Smoking Patient has never smoked Recreational Drug Use Denies Drug Use Daily Caffeine Consumes on average 3 sodas per day diet pepsis per day Exercise Type/Frequency Does not exercise Allergies, Adverse Reactions, Alerts Date Description Reaction Status Severity Comments 08/14/2015 Penicillin rash active Medications Medication Date Status Form Strength Qnty SIG Indications Ordering Provider Amitriptyline 00// Active Tablets 50mg take 1 Unknown HCL 0000 tablets po daily Paxil / Active Tablets 20mg take one Unknown 0000 tablet by mouth one time daily Metformin HCL / Active Tablets ER 500mg 2 by mouth Unknown ER (Mod) 0000 24HR twice a day Glimepiride / Active Tablets 2mg 1 by mouth Unknown 0000 every day prn One Touch / Active tests Unknown Glucose 0000 sugars 4 times per day and prn Tylenol Sinus / Active Tablet 2 po prn Unknown 0000 Warfarin Sodium 02/28/ Hx Tablets 2mg 90tabs take 1-3 Chantelle 2017 - tabs by Corky, 04/20/ mouth at M.D. 2017 5pm nightly Oxycodone-Aceta 02/28/ Hx Tablets 5-325mg 90tabs 1-2 tabs Chantelle minophen 2016 - by mouth Corky, 04/20/ every 4-6 M.D. 2016 hours as needed for pain [facility] Stool 02/28/ Hx Capsules 100mg 90caps 1 tab by Chantelle Softener 2016 - mouth 2-3 Corky, 04/20/ times a M.D. 2016 day Ibuprofen 01/13/ Hx Tablets 800mg 90tabs 1 tablet M25.552 Chantelle 2016 - q8 hours Corky, 04/20/ as needed M.D. 2016 for pain Tramadol HCL 01/13/ Hx Tablets 50mg 60tabs 1 tablet M25.552 Chantelle 2016 - by mouth Corky, 04/20/ every 6 M.D. 2016 hours as needed pain Prilosec / Hx Capsules 20mg 1 by mouth Unknown 0000 - DR every day 2015 Indomethacin / Hx Capsules 25mg 1 cap by Unknown 0000 - mouth 04/21/ three 2016 times daily x 14 days Glyburide / Hx Tablets 5mg 1 by mouth Unknown 0000 - twice a day 2016 Keflex / Hx Capsules 500mg 1 by mouth Unknown 0000 - every 8 04/21/ hrs 2016 Robaxin / Hx Tablets 500mg 1 by mouth Unknown 0000 - every 6 hrs prn 2016 muscle spasm Oxycontin / Hx Tab ER 12H 30mg by mouth Unknown 0000 - Abuse-Det every 12 hrs 2016 Oxycodone HCL / Hx Capsules 5mg 2-3 tabs q Unknown 0000 - 3 hrs prn 10/22/ pain, wean 2015 off as tolerated Vitamin C / Hx Tab 1 by mouth Unknown 0000 - once daily 2015 Colace / Hx Capsules 100mg 1 by mouth Unknown 0000 - twice a 2015 Magnesium Oxide / Hx Tablets 400(241.3M 2 by mouth Unknown 0000 - g) mg every day 2015 Levemir / Hx Solution 100Unit/ML 22 units Unknown 0000 - in A.M. 2017 Advil /00/ Hx Unknown 0000 - 2016 Ramipril / Hx Capsules 2.5mg 1 by mouth Unknown 0000 - every day 2016 Medications Administered in Office Medication Date Status Form Strength Qnty SIG Indications Ordering Provider Inj, Administered Injection Chas Chamberlain Regadenoson, 017 DO Rashid 0.1 MG FACC Technetium TC Administered Injection Chas S. 99M 017 DO Rashid Tetrofosmin, FACC Per Unit Dose Up To 40 Millicuries Vital Signs Date Vital Result Comment 03/11/2018 Height 65 inches 5'5" Heart Rate 88 /min BP Systolic Sitting 120 mmHg BP Diastolic Sitting 70 mmHg Respiratory Rate 16 /min Body Temperature 96.6 F 05/30/2017 Height 65 inches 5'5" Weight 150.00 lb Heart Rate 101 /min BP Systolic 124 mmHg BP Diastolic 84 mmHg Pain Level 0 BMI (Body Mass Index) 25.0 kg/m2 04/21/2017 Height 65 inches 5'5" Weight 149.00 lb Heart Rate 107 /min BP Systolic 117 mmHg BP Diastolic 79 mmHg Body Temperature 97.8 F BMI (Body Mass Index) 24.8 kg/m2 03/24/2017 Height 65 inches 5'5" Weight 149.00 lb Heart Rate 109 /min BP Systolic 134 mmHg BP Diastolic 80 mmHg Body Temperature 97.4 F BMI (Body Mass Index) 24.8 kg/m2 02/28/2017 Height 65 inches 5'5" Weight 149.00 lb Heart Rate 116 /min BP Systolic 131 mmHg BP Diastolic 86 mmHg Body Temperature 97.3 F BMI (Body Mass Index) 24.8 kg/m2 02/21/2017 Height 64 inches 5'4" Weight 149.00 lb Heart Rate 104 /min BP Systolic 120 mmHg LA Regular Cuff BP Diastolic 72 mmHg LA Regular Cuff BP Systolic Sitting 124 mmHg Ra Regular Cuff BP Diastolic Sitting 74 mmHg Ra Regular Cuff BP Systolic Standing 116 mmHg Ra Regular Cuff BP Diastolic Standing 76 mmHg Ra Regular Cuff Respiratory Rate 16 /min Pain Level 0 at rest. O2 % BldC Oximetry 95 % BMI (Body Mass Index) 25.6 kg/m2 01/13/2017 Height 65 inches 5'5" Weight 150.00 lb Heart Rate 91 /min BP Systolic 127 mmHg BP Diastolic 84 mmHg Respiratory Rate 13 /min Pain Level 5 BMI (Body Mass Index) 25.0 kg/m2 10/28/2016 Height 65 inches 5'5" Weight 150.00 lb Heart Rate 64 /min BP Systolic 110 mmHg BP Diastolic 80 mmHg Pain Level 1 BMI (Body Mass Index) 25.0 kg/m2 04/22/2016 Height 65 inches 5'5" Weight 145.00 lb Pain Level 3 BMI (Body Mass Index) 24.1 kg/m2 10/23/2015 Height 65 inches 5'5" Weight 145.00 lb Pain Level 1 BMI (Body Mass Index) 24.1 kg/m2 08/21/2015 Height 65 inches 5'5" Weight 145.00 lb Pain Level 4 BMI (Body Mass Index) 24.1 kg/m2 08/14/2015 Height 65 inches 5'5" Weight 145.00 lb Heart Rate 84 /min BP Systolic Sitting 124 mmHg BP Diastolic Sitting 70 mmHg Respiratory Rate 14 /min Body Temperature 97.0 F BMI (Body Mass Index) 24.1 kg/m2 Results Test Date Test Result H/L Range Note Inr/Protime 04/03/2017 Inr 2.24 High 0.89-1.11 1 Inr/Protime 03/31/2017 Inr 1.94 High 0.89-1.11 2 Inr/Protime 03/27/2017 Inr 1.09 0.89-1.11 3 Inr/Protime 03/20/2017 Inr 2.15 High 0.89-1.11 3 Inr/Protime 02/28/2017 Inr 0.86 Low 0.89-1.11 4 Laboratory test 02/28/2017 Partial Thrombo 29.5 seconds 26.0-36.3 4, 5 finding Time PTT CBC No Diff 02/28/2017 White Blood Count 11.8 10^3/uL High 3.5-10.8 4 Red Blood Count 5.19 10^6/uL 4.0-5.4 4 Hemoglobin 14.4 g/dL 12.0-16.0 4 Hematocrit 44 % 35-47 4 Mean Corpuscular Volume 84 fL 80-97 4 Mean Corpuscular Hemoglobin 28 pg 27-31 4 Mean Corpuscular HGB Conc 33 g/dL 31-36 4 Red Cell Distribution Width 13 % 10.5-15 4 Platelet Count 200 10^3/uL 150-450 4 Mean Platelet Volume 8 um3 7.4-10.4 4 Comp Metabolic Panel 02/28/2017 Sodium 139 mmol/L 133-145 4 Potassium 4.4 mmol/L 3.5-5.0 4 Chloride 106 mmol/L 101-111 4 Co2 Carbon Dioxide 24 mmol/L 22-32 4 Anion Gap 9 mmol/L 2-11 4 Glucose 89 mg/dL 70-100 4 Blood Urea Nitrogen 24 mg/dL 6-24 4 Creatinine 0.77 mg/dL 0.51-0.95 4 BUN/Creatinine Ratio 31.2 High 8-20 4 Calcium 9.7 mg/dL 8.6-10.3 4 Total Protein 7.4 g/dL 6.4-8.9 4 Albumin 4.7 g/dL 3.2-5.2 4 Globulin 2.7 g/dL 2-4 4 Albumin/Globulin Ratio 1.7 1-3 4 Total Bilirubin 0.30 mg/dL 0.2-1.0 4 Alkaline Phosphatase 93 U/L 34-104 4 Alt 15 U/L 7-52 4 Ast 19 U/L 13-39 4 Egfr Non- 79.3 >60 4 Egfr 102.0 >60 4, 6 Urinalysis Profile 02/28/2017 Urine Color Yellow 4 Urine Appearance Clear 4 Urine Specific [place] 1.014 1.010-1.030 4 Urine pH 5.0 5-9 4 Urine Urobilinogen Negative Negative 4 Urine Ketones Negative Negative 4 Urine Protein Negative Negative 4 Urine Leukocytes Negative Negative 4 Urine Blood Negative Negative 4 Urine Nitrite Negative Negative 4 Urine Bilirubin Negative Negative 4 Urine Glucose Negative Negative 4 Type & Screen 02/28/2017 Patient Blood Type A Positive 4 Antibody Screen NEGATIVE 4 Urine Culture And 02/28/2017 Urine Culture SEE RESULT BELOW 4, 7 Sensitivities Order 02/25/2017 Stress Test, <pending> Pharmacologic Nuclear (Lexiscan) Body Fluid C&S 01/28/2017 Body Fluid Cult Gram SEE RESULT BELOW 8, 9 Stain Laboratory test finding 01/28/2017 Acid Fast Smear Direct SEE RESULT BELOW 8, 10 Body Fluid Cell Count 01/28/2017 Body Fluid Source Synovial Fluid 8 Body Fluid Appearance Bloody 8 Body Fluid Color [place] 8 Body Fluid Volume 1.0 mL 8 Body Fluid WBC 104 /mcL 8, 11 Body Fluid RBC 08661 /mcL 8 Body Fluid Neutrophils 75 % 8 Body Fluid Lymph 25 % 8 Body Fluid Total Cells Counted 4 8 Body Fluid Comment (SEE NOTE) 8, 12 Fluid Reviewed By MD (SEE NOTE) 8, 13 Laboratory test 01/28/2017 Anaerobic Culture SEE RESULT BELOW 8, 14 finding Laboratory test 01/28/2017 Anaerobic Culture SEE RESULT BELOW 8, 15 finding Laboratory test 01/28/2017 Mycobacterial Culture See Comment 8, 16 finding Laboratory test 01/28/2017 Anaerobic Culture SEE RESULT BELOW 8, 17 finding Laboratory test 01/28/2017 Anaerobic Culture SEE RESULT BELOW 8, 18 finding Laboratory test 01/24/2017 Erythrocyte Sed Rate 21 mm/Hr 0-30 finding C Reactive Protein 3.79 mg/L < 5.00 19 CBC Auto Diff 01/24/2017 White Blood Count 8.3 10^3/uL 3.5-10.8 Red Blood Count 4.93 10^6/uL 4.0-5.4 Hemoglobin 13.6 g/dL 12.0-16.0 Hematocrit 41 % 35-47 Mean Corpuscular Volume 82 fL 80-97 Mean Corpuscular Hemoglobin 28 pg 27-31 Mean Corpuscular HGB Conc 34 g/dL 31-36 Red Cell Distribution Width 13 % 10.5-15 Platelet Count 180 10^3/uL 150-450 Mean Platelet Volume 9 um3 7.4-10.4 Abs Neutrophils 5.3 10^3/uL 1.5-7.7 Abs Lymphocytes 2.4 10^3/uL 1.0-4.8 Abs Monocytes 0.4 10^3/uL 0-0.8 Abs Eosinophils 0.1 10^3/uL 0-0.6 Abs Basophils 0.1 10^3/uL 0-0.2 Abs Nucleated RBC 0 10^3/uL Granulocyte % 64.0 % 38-83 Lymphocyte % 28.4 % 25-47 Monocyte % 5.3 % 1-9 Eosinophil % 1.2 % 0-6 Basophil % 1.1 % 0-2 Nucleated Red Blood Cells % 0 Laboratory test finding 09/29/2015 C Reactive Protein 3.05 mg/L < 5.00 20 Laboratory test finding 08/31/2015 C Reactive Protein 8.43 mg/L High < 5.00 21 Laboratory test finding 08/14/2015 C Reactive Protein 11.26 mg/L High < 5.00 22 1 CALL STAT RESULTS [id number] 2 CALL RESUTLS TO [id number] 3 PLEASE CALL STAT RESULTS TO [phone] [id number] SD 5 [id number] SD 6 Because ethnic data is not always readily available, this report includes an eGFR for both -Americans and non- Americans. The National Kidney Disease Education Program (NKDEP) does not endorse the use of the MDRD equation for patients that are not between the ages of 18 and 70, are , have extremes of body size, muscle mass, or nutritional status, or are non- or non-. According to the National Kidney Foundation, irrespective of diagnosis, the stage of the disease is based on the level of kidney function: Stage Description GFR(mL/min/1.73 m(2)) 1 Kidney damage with normal or decreased GFR 90 2 Kidney damage with mild decrease in GFR 60-89 3 Moderate decrease in GFR 30-59 4 Severe decrease in GFR 15-29 5 Kidney failure <15 (or dialysis) 7 SEE RESULT BELOW Name: BLANCA REESE : [address]: Chantelle Fried MD Acct: [id number] Unit: [id number] AGE: 51 Location: [facility] Re02/28/17 SEX: F Status: REG REF SPEC: [id number] SOCRATES: 02/28/17-[address]: Chantelle Fried MD REQ: [id number] RECD: 02/28/17 STATUS: COMP _ SOURCE: URINE SPDESC: ORDERED: Urine Culture COMMENTS: [id number] SD QUERIES: Urine Source: Clean Catch Procedure Result Reported Site Urine Culture Final 03/01/17- 1303 ML No growth of clinically significant organisms * ML - MAIN LAB ([facility]) . END OF REPORT * ML=Testing performed at Main Lab DEPARTMENT OF PATHOLOGY, [address] [place] [address] Austin Feng M.D. Director [facility] # [id number] 8 LEFT HIP FLUID 9 SEE RESULT BELOW Name: BLANCA REESE Chadwick : [address]: Chantelle Fried MD Acct: [id number] Unit: [id number] AGE: 51 Location: [facility] Re01/28/17 SEX: F Status: REG REF SPEC: [id number] SOCRATES: 01/28/17-1540 [facility] [address]: Chantelle Fried MD REQ: [id number] RECD: 01/28/17 STATUS: MAIRA SIGALA DR: Andre Villanueva MD _ SOURCE: JOINT FLUI SPDESC:HIP LEFT ORDERED: BF Cult/GS COMMENTS: LEFT HIP FLUID Procedure Result Reported Site Body Fluid Gram Stain Final 01/28/17- 1703 ML 1+ Neutrophils No Organisms Seen Preparation By Direct Smear Body Fluid Culture Final 02/01/17- 0857 ML No Growth Day 4 * ML - MA[facility] LAB ([facility]) . END OF REPORT * ML=Testing performed at Main Lab DEPARTMENT OF PATHOLOGY, [address] [place] [address] Austin Feng M.D. Director [facility] # [id number] 10 SEE RESULT BELOW Name: BLANCA REESE : [address]: Chantelle Fried MD Acct: [id number] Unit: [id number] AGE: 51 Location: [facility] Re01/28/17 SEX: F Status: REG REF SPEC: [id number] SOCRATES: 01/28/17 [facility] [address]: Chantelle Fried MD REQ: [id number] RECD: 01/28/17 STATUS: MAIRA SIGALA DR: Andre Villanueva MD _ SOURCE: BODY FLUID SPDESC:HIP LEFT ORDERED: Acid Fast Stain Procedure Result Reported Site Acid Fast Stain - Direct Final 01/28/17- 1703 ML AFB Smear Result No Acid Fast Bacillus Present (Negative) Preparation By Direct Smear Due to limited sensitivity of the smear, results should be used as an adjunct in evaluating the patient's status and cultural examination is highly recommended for diagnosis. * ML - MA[facility] LAB ([facility]) . END OF REPORT * ML=Testing performed at Main Lab DEPARTMENT OF PATHOLOGY, [address] [place] [address] Austin Feng M.D. Director [facility] # [id number] 11 -- REFERENCE VALUE -- Synovial: <150/mcL Peritoneal: <500/mcL Pleural: <500/mcL Pericardial: <500/mcL 12 Differential performed on concentrated smear. 13 No evidence of an acute inflammatory response. No evidence of malignancy. Reviewed by Marlen Horvath MD 14 SEE RESULT BELOW Name: JANEEBLANCA L : [address]: Chantelle Fried MD Acct: [id number] Unit: [id number] AGE: 51 Location: [facility] Re01/28/17 SEX: F Status: REG REF SPEC: [id number] SOCRATES: 01/28/[address] [facility] [address]: Chantelle Fried MD REQ: [id number] RECD: 01/28/17 STATUS: RES OTHR DR: Andre Villanueva MD _ SOURCE: MISC SOURC SPDESC:HIP LEFT ORDERED: Anaerobic Cult, Fungal - Other COMMENTS: LEFT HIP FLUID Procedure Result Reported Site Anaerobic Culture Final 02/01/17- 0857 ML No Growth Day 4 Fungal Cult - Other Sources Preliminary 02/03/17- 1222 ML No Growth Week 1 * ML - MA[facility] LAB ([facility]) . END OF REPORT * ML=Testing performed at Main Lab DEPARTMENT OF PATHOLOGY, [address] [place] [address] Austin Feng M.D. Director [facility] # [id number] 15 SEE RESULT BELOW Name: BLANCA REESE : [address]: Chantelle Fried MD Acct: [id number] Unit: [id number] AGE: 51 Location: [facility] Re01/28/17 SEX: F Status: REG REF SPEC: [id number] SOCRATES: 01/28/17-15[address] [facility] [address]: Chantelle Fried MD REQ: [id number] RECD: 01/28/17 STATUS: RES OTHR DR: Andre Villanueva MD _ [facility]:HIP LEFT ORDERED: Anaerobic Cult, Fungal - Other COMMENTS: LEFT HIP FLUID Procedure Result Reported Site Anaerobic Culture Final 02/01/17- 0857 ML No Growth Day 4 Fungal Cult - Other Sources Preliminary 02/10/17- 1403 ML No Growth Week 2 * ML - MAIN LAB ([facility]) . END OF REPORT * ML=Testing performed at Main Lab DEPARTMENT OF PATHOLOGY, [address] [place] [address] Austin Feng M.D. Director [facility] # [id number] 16 SOURCE: SYNOVIAL FLUID, LEFT HIP FLUID MYCOBACTERIAL CULTURE FINAL No growth after 60 days of incubation. Test Performed by: [address] [address] 17 SEE RESULT BELOW Name: BLANCA REESE : [address]: Chantelle Fried MD Acct: [id number] Unit: [id number] AGE: 51 Location: [facility] Re01/28/17 SEX: F Status: REG REF SPEC: [id number] SOCRATES: 01/28/17-[address] [facility] [address]: Chantelle Fried MD REQ: [id number] RECD: 01/28/17 STATUS: MAIRA SIGALA DR: Andre Villanueva MD _ SOURCE: [facility] SOURC SPDESC:HIP LEFT ORDERED: Anaerobic Cult, Fungal - Other COMMENTS: LEFT HIP FLUID Procedure Result Reported Site Anaerobic Culture Final 02/01/17- 0857 ML No Growth Day 4 Fungal Cult - Other Sources Final 02/24/17- 1117 ML No Growth Week 4 * ML - MA[facility] LAB ([facility]) . END OF REPORT * ML=Testing performed at Main Lab DEPARTMENT OF PATHOLOGY, [address] [place] [address] Austin Feng M.D. Director [facility] # [id number] 18 SEE RESULT BELOW Name: BLANCA REESE : [address]: Chantelle Fried MD Acct: [id number] Unit: [id number] AGE: 51 Location: [facility] Re01/28/17 SEX: F Status: REG REF SPEC: [id number] SOCRATES: 01/28/17-[address] [facility] [address]: Chantelle Fried MD REQ: [id number] RECD: 01/28/17 STATUS: RES OTHR DR: Andre Villanueva MD _ [facility] SPDESC:HIP LEFT ORDERED: Anaerobic Cult, Fungal - Other COMMENTS: LEFT HIP FLUID Procedure Result Reported Site Anaerobic Culture Final 02/01/17- 0857 ML No Growth Day 4 Fungal Cult - Other Sources Preliminary 02/17/17- 1146 ML No Growth Week 3 * ML - MAIN LAB ([facility]) . END OF REPORT * ML=Testing performed at Main Lab DEPARTMENT OF PATHOLOGY, [address] [place] [address] Austin Feng M.D. Director [facility] # [id number] 19 Acute inflammation: >10.00 20 Acute inflammation: >10.00 21 Acute inflammation: >10.00 22 Acute inflammation: >10.00 Procedures Date CPT Code Description Status 03/11/201758055 THR Total Hip Replacement Completed 03/11/2017 45041 THR Total Hip Replacement Completed 03/11/201765359 THR Total Hip Replacement Completed 03/11/2017 92486 THR Total Hip Replacement Completed 02/25/2017 59907 Stress Test Completed 02/25/2017 95152 Myocardial Perfusion Imaging Tomographic (Spect) Completed Multiple Studies 02/21/2017 40855 EKG Tracing & Interpretation Completed 07/06/2015 05150 EKG, Interpretation Only Completed 07/05/2015 41710 Arthrotomy Hip W/Drainage Completed 07/05/2015 41020 Arthrotomy Hip W/Drainage Completed 06/29/2015 36159 Color Flow Doppler/Interp & Reprt Completed 06/29/2015 10933 Pulse Wave/Continuous-Interp.RPT Completed 06/29/2015 11910 Echocardiography, Transesophageal, Real Time W/Image 2D Completed W/W/O M-M 06/24/2015 47309 Nerve Conduction 07-08 Studies Completed 06/24/2015 37893 Needle Electromyography Each Extremity W/Related Completed Paraspinal Areas 06/21/2015 92624 EEG Monitoring & Video Recording Completed 06/21/2015 74563 Electroencephalogram EEG Extended Monitoring Over 1 Completed Hour 06/19/2015 71892 Spinal Puncture, Lumbar Diagnostic Completed 06/21/2014 83849 EEG Monitoring & Video Recording Completed Encounters Type Date Location Provider CPT E/M Dx Office Visit 03/13/2017 [place] abhay Altamirano 39240 E11.9 9:15a Hospitalists GRANT Hunt Z96.642 Z79.4 Office Visit 03/12/2017 9:14a [place] Krista Hunt 22055 E11.9 Assabhay damon Z96.642 Z79.4 Office Visit 03/11/2017 9:12a [place] abhay Altamirano N.PArvind 81980 E11.9 Hospitalists Z96.642 Z79.4 Office Visit 02/21/2017 9:00a [facility] Mike, 65362 Z01.810 [facility] AT [facility] M16.52 E11.69 Office Visit 01/13/2017 3:30p [facility] Chantelle Fried M.D. 89496 M25.552 C.M.A. B95.61 M16.52 Office Visit 10/28/2016 10:15a [facility] Fried M.D. 06772 M25.552 C.M.A. M86.052 M16.12 Office Visit 04/22/2016 3:00p [facility] Fried M.D. 88446 M25.552 C.M.A. M86.052 M60.052 B95.61 M16.52 Office Visit 10/23/2015 3:00p [facility] Fried M.D. 07395 M86.052 C.M.A. Z48.89 Office Visit 08/14/2015 3:00p [place] Iam Meeks 66435 M86.052 Infectious Mary Harris M.D. Office Visit 08/04/2015 2:37p [place] Iam Meeks 01629 M86.052 Infectious Mary Harris M.D. M60.052 B95.61 G62.81 Office Visit 08/02/2015 8:54a [place] Iam Meeks 38409 M86.052 Infectious Mary Harris M.D. M60.052 B95.61 G62.81 Office Visit 07/25/2015 8:16a [place] Iam Meeks 91380 M86.052 Infectious Mary Harris M.D. B95.61 M60.052 G62.81 Office Visit 07/19/2015 8:19a [place] Iam Meeks 63997 M86.052 Infectious Mary Harris M.D. M60.18 B95.61 G62.81 Office Visit 07/11/2015 11:07a [place] Iam Meeks 23305 M86.052 Infectious Diseases Eric Harris M60.18 B95.61 G62.81 Office Visit 07/07/2015 11:08a [facility] Joslyn Laceyhn, 49203 G93.49 Assoc,pc Hospitalists M.D. M86.9 G70.9 A41.01 Office Visit 07/07/2015 10:49a [facility] Bautista Harris, 69706 M60.18 Infectious Diseases M.D. M86.052 B95.61 Office Visit 07/06/2015 11:08a [facility] 72136 G93.49 Assoc,pc Hospitalists M.D. M86.9 G70.9 A41.01 Office Visit 07/06/2015 8:42a [facility] Bautista Harris, 96324 M60.18 Infectious Diseases M.D. M86.052 B95.61 Office Visit 07/05/2015 11:07a [facility], 09759 G93.49 Assoc,pc Hospitalists M.D. M86.9 G70.9 A41.01 Office Visit 07/05/2015 8:32a [facility] Bautista Harris, 10882 M60.18 Infectious Diseases M.D. M79.89 M85.88 B95.61 Office Visit 07/04/2015 11:05a [facility], 18138 G93.49 Assoc,pc Hospitalists M.D. M86.9 G70.9 Office Visit 07/04/2015 8:28a [facility] Bautista Harris, 32941 M60.18 Infectious Diseases M.D. M79.89 M85.88 Office Visit 07/03/2015 11:05a [facility], Xenia Hernandez, 82001 G93.49 Hospitalists M.D. R50.9 G70.9 M25.559 Office Visit 07/03/2015 9:45a [facility] Bautista Harris, 62213 R78.81 Infectious Diseases M.D. M25.552 Office Visit 07/02/2015 11:04a [facility], Xenia Hernandez, 19674 G93.49 Hospitalists M.D. R50.9 G70.9 Office Visit 07/01/2015 11:04a [facility], Xenia Hernandez, 99350 G93.49 Hospitalists M.DArvind R50.9 G70.9 Office Visit 06/30/2015 11:[address]a [facility], Xenia Hernandez, 14458 G93.49 Hospitalists M.D. G70.9 R50.9 A41.01 Office Visit 06/30/2015 9:37a [facility] Gilbert Harris, 23314 R78.81 Infectious Diseases M.Constantino M25.552 R41.82 R29.898 R50.9 Office Visit 06/29/2015 11:[address]a [facility], Xenia Hernandez, 71377 G93.49 Hospitalists MArvindDArvind G70.9 A41.01 Office Visit 06/28/2015 [facility] X[facility], 83848 G93.49 Hospitalists M.DArvind G70.9 A41.01 Office Visit 06/27/2015 11[facility]a [facility] Xenia Hernandez, 66693 G93.49 Hospitalists M.DArvind G70.9 A41.01 Office Visit 06/26/2015 11:00a [facility] Brittney, 76417 G93.49 Assoc, Hospitalists MArvindDArvind G70.9 J15.211 A41.01 Office Visit 06/26/2015 2:30p [facility] Lui Abdi, 17565 G93.41 Eric G72.81 Office Visit 06/25/2015 2:29p [facility] Lui Abdi, 00800 G93.41 Eric G72.81 Office Visit 06/24/2015 11:00a [facility], Avinash Mike M.D. 32632 G93.49 Hospitalists G70.9 A41.01 Office Visit 06/24/2015 2:27p [facility] Lui Abdi, 07732 G93.41 M.DArvind G72.81 Office Visit 06/23/2015 8:44a [facility] Gilbert Constantino Harris, 63381 R78.81 Infectious Diseases M.D. M25.552 R41.82 R29.898 R21 K40.20 Office Visit 06/23/2015 10:59a [facility], Avinash Mike M.D. 63071 G70.9 Hospitalists G93.49 A41.01 Office Visit 06/23/2015 2:26p [facility] uLi Abdi, 15251 G93.41 M.DArvind G72.81 Office Visit 06/22/2015 8:30a [facility] Gilbert Harris, 99231 R78.81 Infectious Diseases M.D. M25.552 R41.82 R29.898 R21 Office Visit 06/22/2015 2:24p [facility] Lui Abdi, 88813 A41.9 M.D. G93.41 G72.81 Office Visit 06/21/2015 8:26a [facility] Gilbert Constantino Harris, 05494 R78.81 Infectious Diseases M.D. M25.552 R41.82 R29.898 R21 Office Visit 06/21/2015 10:59a [facility], Avinash Mike M.D. 92500 G93.49 Hospitalists G70.9 A41.01 Office Visit 06/21/2015 11:49a [facility] [address] G93.41 G72.81 R94.01 Office Visit 06/20/2015 8:04a [facility] [place] Harris, [address] R78.81 Infectious Diseases M.D. M25.552 R41.82 R29.898 R21 Office Visit 06/20/2015 11:48a [facility] [address] G93.41 G72.81 Office Visit 06/20/2015 10:58a [facility], Avinash Mike M.D. 53692 J15.211 Hospitalists J96.01 G93.41 A41.01 Office Visit 06/19/2015 11:46a [facility] [address] G93.41 G72.81 [facility] 24748 J15.211 Hospitalists J96.01 G93.41 A41.01 Office Visit 06/18/2015 10:[facility] Pri[facility] [address] J96.01 Hospitalists Stas Martell G93.41 J15.211 A41.01 Office Visit 06/17/2015 10[facility] [place] [address] J96.01 Hospitalists Stas Martell G93.41 J15.211 A41.01 Plan of Care 03/11/2018 - Chantelle Fried M.D.Z47.1 Aftercare following joint replacement surgeryFollow up:Follow up: 2 [id number] Presence of left artificial hip xsqpvI68.552 Pain in left hipM16.12 Unilateral primary osteoarthritis, left hip
--- NOTE | 2018-03-19 14:26 | UC ---
Throat Pain/Nasal Jimy HPI - HPI Summary HPI Summary: 52 yo female presents with sinus pain/pressure/congestion for the last 2 weeks. Sore throat and headache began yesterday. She has been taking mucinex with no relief. Denies fever, chills, cough, SOB, chest pain, or rash. - History of Current Complaint Stated Complaint: CONGESTION, SORE THROAT Time Seen by Provider: 03/19/18 14:26 Hx Obtained From: Patient Hx Last Menstrual Period: 05/12/15 Onset/Duration: Gradual Onset Severity: Moderate Pain Intensity: 4 Pain Scale Used: 0-10 Numeric - Allergies/Home Medications Allergies/Adverse Reactions: Allergies Allergy/AdvReac Type Severity Reaction Status Date / Time bee venom protein (honey bee) Allergy Severe SWELLING Verified 03/19/18 14:21 OF FACE, LIPS AND Penicillins Allergy Severe Rash Verified 03/19/18 14:21 Home Medications: Home Medications Glimepiride 2 mg PO BID 03/19/18 [History Confirmed 03/19/18] guaiFENesin ER TAB [Mucinex*] 600 mg PO BID PRN 03/19/18 [History Confirmed ] PMH/Surg Hx/FS Hx/Imm Hx Endocrine History: Diabetes Psychological History: Anxiety - Surgical History Surgical History: Yes Surgery Procedure, Year, and Place: , bladder repair - Family History Known Family History: Positive: Diabetes - Social History Occupation: Employed Full-time Lives: With Family Alcohol Use: None Substance Use Type: None Smoking Status (MU): Never Smoked Tobacco - Immunization History Most Recent Influenza Vaccination: 2013 Most Recent Tetanus Shot: unknown Most Recent Pneumonia Vaccination: none Review of Systems Constitutional: Negative Skin: Negative Eyes: Negative ENT: Sore Throat, Nasal Discharge, Sinus Congestion, Sinus Pain/Tenderness Respiratory: Negative Cardiovascular: Negative Gastrointestinal: Negative Neurological: Negative Psychological: Negative All Other Systems Reviewed And Are Negative: Yes Physical Exam - Summary Physical Exam Summary: GENERAL: NAD. WDWN. No pain distress. SKIN: No rashes, sores, lesions, or open wounds. HEENT: Head: AT/NC Eyes: EOM intact. Conjunctiva clear without inflammation or discharge. Ears: Hearing grossly normal. TMs intact, no bulging, erythema, or edema. Nose: Nasal mucosa mildly swollen and erythematous with yellow/ clear discharge. TTP maxillary and frontal sinus. Throat: Posterior oropharynx without exudates, erythema, or tonsillar enlargement. Uvula midline. NECK: Supple. Nontender. No lymphadenopathy. CHEST: CTAB. No r/r/w. No accessory muscle use. Breathing comfortably and in no distress. CV: RRR. Without m/r/g. Pulses intact. Brisk cap refill. NEURO: Alert. CN II-XII grossly intact. PSYCH: Age appropriate behavior. Triage Information Reviewed: Yes Vital Signs: Vital Signs: Temp Pulse Resp BP Pulse Ox 98.5 F 92 16 111/72 97 03/19/18 14:25 03/19/18 14:25 03/19/18 14:25 03/19/18 14:25 03/19/18 14:25 Vital Signs Reviewed: Yes Throat Pain/Nasal Course/Dx - Course Course Of Treatment: Sinusitis - Differential Dx/Diagnosis Provider Diagnoses: Sinusitis Discharge - Sign-Out/Discharge Documenting (check all that apply): Patient Departure - Discharge Plan Condition: Stable Disposition: HOME Prescriptions: DOXYcycline CAP(*) [DOXYcycline 100MG CAP(*)] 100 mg PO BID #20 cap Patient Education Materials: Sinusitis (ED) Referrals: No Primary Care Phys,NOPCP [Primary Care Provider] - Additional Instructions: If you develop a fever, shortness of breath, chest pain, new or worsening symptoms - please call your PCP or go to the ED. - Billing Disposition and Condition Condition: STABLE Disposition: Home
[2018-03-19 14:32] VITALS: BP 111/72
== END 2018-03-19 15:00 | disposition home or self-care (01) ==
LOC: UCCORT 13:57
DX: Z88.1 Allergy status to other antibiotic agents (principal); E11.9 Type 2 diabetes mellitus without complications; Z79.84 Long term (current) use of oral hypoglycemic drugs; J32.9 Chronic sinusitis, unspecified
CPT/HCPCS: 87651; 99212; G0463

== ENCOUNTER 2018-07-21 16:11 | Emergency (ER) | payer OTHER ==
[2018-07-21 17:11] VITALS: BP 122/72
--- NOTE | 2018-07-21 17:24 | UC ---
UC General HPI - HPI Summary HPI Summary: 3 day hx headache, thick yellow bloody sinus drainage and sinus pain, post nasal drip causing a sore throat. hx DM and mild bump in BS. hx sinsuitis and this feels the same. - History of Current Complaint Chief Complaint: UCGeneralIllness Stated Complaint: EARS,SINUSES,THROAT COMPLAINT Time Seen by Provider: 07/21/18 17:15 Hx Obtained From: Patient Hx Last Menstrual Period: 05/12/15 Onset/Duration: Gradual Onset Timing: Constant Pain Intensity: 0 - Allergy/Home Medications Allergies/Adverse Reactions: Allergies Allergy/AdvReac Type Severity Reaction Status Date / Time bee venom protein (honey bee) Allergy Severe SWELLING Verified 07/21/18 17:12 OF FACE, LIPS AND Penicillins Allergy Severe Rash Verified 07/21/18 17:12 PMH/Surg Hx/FS Hx/Imm Hx - Additional Past Medical History Additional PMH: MRSA, sepsis, interstitial cystitis Endocrine History: Diabetes Respiratory History: Pneumonia Psychological History: Anxiety - Surgical History Surgical History: Yes Surgery Procedure, Year, and Place: , bladder repair, left hip replacement - Family History Known Family History: Positive: Diabetes - Social History Occupation: Employed Full-time Alcohol Use: None Substance Use Type: None Smoking Status (MU): Never Smoked Tobacco - Immunization History Most Recent Influenza Vaccination: 2013 Most Recent Tetanus Shot: unknown Most Recent Pneumonia Vaccination: none Review of Systems All Other Systems Reviewed And Are Negative: Yes Constitutional: Positive: Negative Skin: Positive: Negative Eyes: Positive: Negative ENT: Positive: Sore Throat, Ear Ache, Nasal Discharge, Sinus Congestion, Sinus Pain/Tenderness Respiratory: Positive: Negative Cardiovascular: Positive: Negative Gastrointestinal: Positive: Negative Genitourinary: Positive: Negative Motor: Positive: Negative Neurovascular: Positive: Negative Musculoskeletal: Positive: Negative Neurological: Positive: Negative Psychological: Positive: Negative Physical Exam Triage Information Reviewed: Yes Appearance: Well-Appearing Vital Signs: Initial Vital Signs Temp 96.9 F 07/21/18 17:09 Pulse 100 07/21/18 17:09 Resp 16 07/21/18 17:09 BP 122/72 07/21/18 17:09 Pulse Ox 98 07/21/18 17:09 Vital Signs Reviewed: Yes Eyes: Positive: Conjunctiva Clear ENT: Positive: Pharynx normal, Nasal congestion, TMs normal, Sinus tenderness. Negative: Nasal drainage Neck: Positive: Supple, Nontender, No Lymphadenopathy Respiratory: Positive: Lungs clear, Normal breath sounds Cardiovascular: Positive: RRR, No Murmur Abdomen Description: Positive: Nontender, No Organomegaly, Soft Bowel Sounds: Positive: Present Musculoskeletal: Positive: ROM Intact Neurological: Positive: Alert Psychological: Positive: Age Appropriate Behavior Skin Exam: Normal Course/Dx - Course Course Of Treatment: only 3 days of illness but worsening with purulent-bloody nasal discharge and sinus pain/tenderness plus hx DM thus txing for presumtive bacterial infection. - Differential Dx - Multi-Symptom Provider Diagnoses: sinusitis Discharge - Sign-Out/Discharge Documenting (check all that apply): Patient Departure All imaging exams completed and their final reports reviewed: No Studies - Discharge Plan Condition: Stable Disposition: HOME Prescriptions: DOXYcycline CAP(*) [DOXYcycline 100MG CAP(*)] 100 mg PO BID 10 Days #20 cap Patient Education Materials: Sinusitis (ED) Referrals: Neisha Corley DO [Primary Care Provider] - 7 Days - Billing Disposition and Condition Condition: STABLE Disposition: Home
== END 2018-07-21 17:30 | disposition home or self-care (01) ==
LOC: UCCORT 16:11
DX: J32.9 Chronic sinusitis, unspecified (principal); E11.9 Type 2 diabetes mellitus without complications; Z88.0 Allergy status to penicillin; Z91.030 Bee allergy status
CPT/HCPCS: 99212; G0463

== ENCOUNTER 2019-01-07 17:22 | Emergency (ER) | payer BC, OTHER ==
[2019-01-07 17:50] VITALS: BP 118/70
--- NOTE | 2019-01-07 17:57 | UC ---
Throat Pain/Nasal Jimy HPI - HPI Summary HPI Summary: c/o sinus pain, congestion, pressure, sneezing, post nasal dripping, coughing, headache for the past 8-10 days. She states this happens to her every spring and fall. She does not take any allergy meds. lost her voice 3 days ago. nothing makes it better/worse. has tried/failed: m ost otc meds. - History of Current Complaint Chief Complaint: UCRespiratory Stated Complaint: SORE THROAT/COUGH/CONGESTION Time Seen by Provider: 01/07/19 17:43 Hx Obtained From: Patient Hx Last Menstrual Period: 05/12/15 Onset/Duration: Gradual Onset Pain Intensity: 5 Pain Scale Used: 0-10 Numeric - Allergies/Home Medications Allergies/Adverse Reactions: Allergies Allergy/AdvReac Type Severity Reaction Status Date / Time bee venom protein (honey bee) Allergy Severe SWELLING Verified 01/07/19 17:50 OF FACE, LIPS AND Penicillins Allergy Severe Rash Verified 01/07/19 17:50 Home Medications: Home Medications Phenylephrine HCl/Acetaminophn [Gnp Day Time Sinus] 2 cap PO DAILY 01/07/19 [ History Confirmed 01/07/19] PMH/Surg Hx/FS Hx/Imm Hx Previously Healthy: Yes Endocrine History: Diabetes - Surgical History Surgical History: Yes Surgery Procedure, Year, and Place: , bladder repair, left hip replacement - Family History Known Family History: Positive: Diabetes - Social History Alcohol Use: None Substance Use Type: None Smoking Status (MU): Never Smoked Tobacco - Immunization History Most Recent Influenza Vaccination: 2013 Most Recent Tetanus Shot: unknown Most Recent Pneumonia Vaccination: none Review of Systems All Other Systems Reviewed And Are Negative: Yes Constitutional: Negative: Fever, Chills, Fatigue ENT: Positive: Nasal Discharge, Sinus Congestion, Sinus Pain/Tenderness. Negative: Dental Pain, Sore Throat Respiratory: Positive: Cough. Negative: Shortness Of Breath Cardiovascular: Positive: Negative Gastrointestinal: Negative: Vomiting, Diarrhea Neurological: Positive: Headache Physical Exam Triage Information Reviewed: Yes Appearance: Well-Appearing Vital Signs: Initial Vital Signs Temp 97.3 F 01/07/19 17:45 Pulse 93 01/07/19 17:45 Resp 16 01/07/19 17:45 BP 118/70 01/07/19 17:45 Pulse Ox 97 01/07/19 17:45 Vital Signs Reviewed: Yes Eyes: Positive: Conjunctiva Clear ENT: Positive: Pharynx normal, TMs normal, Hoarse voice, Sinus tenderness, Uvula midline. Negative: Pharyngeal erythema, Tonsillar swelling, Tonsillar exudate, Muffled voice Respiratory Exam: Normal Cardiovascular Exam: Normal Skin: Negative: Rashes Throat Pain/Nasal Course/Dx - Course Course Of Treatment: Subacute sinus congestion and tenderness on exam. Assoc. w/ post nasal drip which I believe is causing the laryngitis and coughing. Given the degree of facial tenderness and duration will rx antibx. No distress noted. vitals good. - Differential Dx/Diagnosis Differential Diagnosis/HQI/PQRI: Pharyngitis, Sinusitis, Tonsillitis, URI Provider Diagnosis: Bacterial sinusitis Discharge - Sign-Out/Discharge Documenting (check all that apply): Patient Departure All imaging exams completed and their final reports reviewed: No Studies - Discharge Plan Condition: Good Disposition: HOME Prescriptions: DOXYcycline CAP(*) [DOXYcycline 100MG CAP(*)] 100 mg PO BID 7 Days #14 cap Patient Education Materials: Laryngitis (ED) Forms: *Work Release Referrals: Neisha Corley DO [Primary Care Provider] - Additional Instructions: Please follow up with your primary care if not improving. - Billing Disposition and Condition Condition: GOOD Disposition: Home
== END 2019-01-07 18:16 | disposition home or self-care (01) ==
LOC: UCCORT 17:22
DX: J32.8 Other chronic sinusitis (principal); B96.89 Other specified bacterial agents as the cause of diseases classified elsewhere; R05 Cough; R51 Headache; E11.9 Type 2 diabetes mellitus without complications; Z88.0 Allergy status to penicillin; Z91.030 Bee allergy status
CPT/HCPCS: 99212; G0463